=== PATIENT | male | born 1955 | race Two or more races ===

== ENCOUNTER 2018-07-21 06:10 | Day surgery (SDC) | payer OTHER | END 2018-07-21 10:15 | disposition home or self-care (01) | LOC: AMB-ENDOS 06:10 → EDBD 11:15 → AMB-ENDOS 11:15 | DX: D12.2 Benign neoplasm of ascending colon (principal); D12.4 Benign neoplasm of descending colon; D12.8 Benign neoplasm of rectum; Z12.11 Encounter for screening for malignant neoplasm of colon ==

== ENCOUNTER → 2022-09-26 12:24 | Outpatient (CLI) | payer OTHER | END | disposition home or self-care (01) | LOC: LAB 12:24 | PROVIDERS: ATTEND Colon & Rectal Surgery | DX: Z11.59 Encounter for screening for other viral diseases (principal); Z20.828 Contact with and (suspected) exposure to other viral communicable diseases; Z20.822 Contact with and (suspected) exposure to COVID-19 ==

== ENCOUNTER 2022-10-01 08:09 | Day surgery (SDC) | payer OTHER | END 2022-10-01 14:25 | disposition home or self-care (01) | LOC: AMB-ENDOS 08:09 | PROVIDERS: ATTEND Colon & Rectal Surgery | DX: K63.5 Polyp of colon (principal); K60.3 Anal fistula; K64.8 Other hemorrhoids; R19.4 Change in bowel habit; Z20.822 Contact with and (suspected) exposure to COVID-19; E03.9 Hypothyroidism, unspecified ==